=== PATIENT | female | born 1980 | race Two or more races ===

== ENCOUNTER 2025-09-09 10:00 | Day surgery (SDC) | payer OTHER ==
[~2025-09-09 10:00] MED LIST: DIPHENHYDRAMINE HCL 50 MG/ML VIAL 1ML IV ONE; MIDAZOLAM HCL 2 MG/2 ML VIAL IV ONE; fentaNYL CITRATE 50 MCG/ML AMPUL IV PUSH ONE
== END 2025-09-09 10:05 | disposition home or self-care (01) ==
LOC: AMB-ENDOS 10:00
PROVIDERS: ATTEND Colon & Rectal Surgery
DX: K63.5 Polyp of colon (principal); K62.5 Hemorrhage of anus and rectum; Z86.0100 Personal history of colon polyps, unspecified